=== PATIENT | male | born 2000 | race Two or more races ===

== ENCOUNTER 2022-07-08 12:32 | Outpatient (REF) | payer OTHER, SELFPAY ==
[2022-07-08 12:54] LABS: MANUAL DIFF FLAG NO
[2022-07-08 14:20] LABS: Basophils Percent Auto 0.3 % (0-2); Eosinophils Absolute Auto 0.1 X10*3/uL (0.0-0.4); Eosinophils Percent Auto 0.8 % (0-4); Hematocrit 43.9 % (42.0-52.0); Hemoglobin 15.2 g/dl (14.0-18.0); Imm Gran Abs Auto 0.01 X10*3/uL (0.00-0.03); Imm Gran Pct Auto 0.2 % (0.0-0.4); Lymphocytes Absolute Auto 2.6 X10*3/uL (1.2-4.9); Mean Corpuscular HGB Conc 34.6 g/dl (31.0-36.0); Mean Corpuscular Hemoglobin 28.4 pg (27.0-33.0); Mean Corpuscular Volume 81.9 fL (80.0-98.0); Mean Platelet Volume 11.7 fL (9.4-12.4); Monocytes Absolute Auto 0.3 X10*3/uL (0.1-1.2); Neutrophils Absolute Auto 3.4 x10*3/uL (2.0-8.3); Neutrophils Percent Auto 52.7 % (45-73); Platelet Count 213 X10*3/uL (160-400); Red Blood Count 5.36 X10*6/uL (4.60-5.80); Red Cell Distribution Width 13.1 % (11.0-16.0); White Blood Count 6.4 X10*3/uL (4.8-10.8)
[2022-07-08 14:51] LABS: Alanine Aminotransferase 11 U/L (0-40); Alkaline Phosphatase 105 U/L (39-117); Anion Gap 14 (12-20); Aspartate Amino Transferase 20 U/L (5-37); Bilirubin Total 3.5 mg/dL (0.0-1.0); Blood Urea Nitrogen 17 mg/dL (9-16); Calcium 10.1 mg/dL (8.4-10.2); Carbon Dioxide 24 mmol/L (22-29); Chloride 106 mmol/L (96-108); Estimated Glomerular Filt Rate > 60; Glucose Random 92 mg/dL (60-115); Potassium 4.4 mmol/L (3.3-5.1); Sodium 140 mmol/L (135-145); Total Protein 7.9 g/dL (6.5-8.0)
[2022-07-08 14:54] LABS: Vitamin D 25-OH Total 65.8 ng/mL (>30)
[2022-07-10 18:39] LABS: TS Negative Control Passed; TS Panel A 0; TS Panel B 0; TS Positive Control Passed; TSpotTB Negative (Negative)
== END 2022-07-08 12:33 | disposition home or self-care (01) ==
LOC: HO.LAB 12:32
PROVIDERS: Visit Provider Internal Medicine Gastroenterology
DX: E46 Unspecified protein-calorie malnutrition (principal); K75.81 Nonalcoholic steatohepatitis (NASH)
CPT/HCPCS: 36415; 80053; 82306; 85025; 86481

== ENCOUNTER 2024-09-17 08:56 | Outpatient (REF) | payer OTHER, SELFPAY ==
[2024-09-17 09:24] LABS: MANUAL DIFF FLAG NO
[2024-09-17 09:50] LABS: Basophils Percent Auto 0.4 % (0-2); Eosinophils Absolute Auto 0.1 X10*3/uL (0.0-0.4); Hematocrit 44.1 % (42.0-52.0); Hemoglobin 15.8 g/dl (14.0-18.0); Imm Gran Abs Auto 0.01 X10*3/uL (0.00-0.03); Imm Gran Pct Auto 0.2 % (0.0-0.4); Lymphocytes Absolute Auto 2.7 X10*3/uL (1.2-4.9); Lymphocytes Percent Auto 48.4 % (20-40); Mean Corpuscular HGB Conc 35.8 g/dl (31.0-36.0); Mean Corpuscular Hemoglobin 29.4 pg (27.0-33.0); Mean Platelet Volume 11.3 fL (9.4-12.4); Monocytes Absolute Auto 0.3 X10*3/uL (0.1-1.2); Neutrophils Absolute Auto 2.5 x10*3/uL (2.0-8.3); Platelet Count 179 X10*3/uL (160-400); Red Blood Count 5.38 X10*6/uL (4.60-5.80); Red Cell Distribution Width 13.1 % (11.0-16.0); White Blood Count 5.6 X10*3/uL (4.8-10.8)
[2024-09-17 10:07] LABS: Estimated Average Glucose 91 mg/dL; Hemoglobin A1C 117.3928 umol/L; Hemoglobin A1c % 4.8 % (<6.0); Total Hemoglobin (HGBA1C) 4007.2779 umol/L
[2024-09-17 10:53] LABS: Ferritin 66 ng/mL (20-250); TSH reflex Free T4 2.66 uIU/mL (0.32-4.0); Vitamin D 25-OH Total 49.4 ng/mL (>30)
[2024-09-17 10:54] LABS: Folate 7.2 ng/mL (> or = 4.0); Vitamin B12 771 pg/mL (200-900)
[2024-09-17 11:01] LABS: Alanine Aminotransferase 26 U/L (0-40); Anion Gap 14 (12-20); Aspartate Amino Transferase 32 U/L (5-37); Bilirubin Total 1.5 mg/dL (0.0-1.0); Blood Urea Nitrogen 12 mg/dL (9-16); Carbon Dioxide 25 mmol/L (22-29); Chloride 104 mmol/L (96-108); Cholesterol 221 mg/dL (<200); Estimated Glomerular Filt Rate > 60; Glucose Random 95 mg/dL (60-115); HDL Cholesterol 41 mg/dL (>40); LDL Cholesterol Calculated 147 mg/dL (<100); Magnesium 2.2 mg/dL (1.6-2.6); Potassium 3.7 mmol/L (3.3-5.1); Sodium 139 mmol/L (135-145); Total Protein 8.6 g/dL (6.5-8.0); Triglycerides 166 mg/dL (<150)
[2024-09-17 12:18] LABS: Reflex LDLD? No
[2024-09-17 19:44] LABS: Alkaline Phosphatase 101 U/L (39-117)
[2024-09-18 12:34] LABS: LDL Cholesterol Direct 152 mg/dL (<100)
[2024-09-20 23:42] LABS: Zinc 77 mcg/dL (60-130)
[2024-09-21 15:08] LABS: Apolipoprotein A1 118 mg/dL (>=115); Apolipoprotein B 120 mg/dL (<90)
[2024-09-21 22:05] LABS: Transglutaminase Ab IgG <1.0 U/mL
[2024-09-22 00:18] LABS: Vitamin A 58 mcg/dL (38-98)
[2024-09-22 04:59] LABS: Lipoprotein Asso Phospholip A2 129 (<124)
[2024-09-23 09:04] LABS: Lipoprotein A 12 nmol/L (<75)
[2024-09-23 16:02] LABS: Histamine Plasma >28.6 ng/mL (< OR = 1.8)
== END 2024-09-17 08:57 | disposition home or self-care (01) ==
LOC: HO.LAB 08:56
PROVIDERS: PCP Nurse Practitioner Family; Visit Provider Internal Medicine Gastroenterology
DX: E46 Unspecified protein-calorie malnutrition (principal); R10.33 Periumbilical pain; G89.29 Other chronic pain; Z13.1 Encounter for screening for diabetes mellitus
CPT/HCPCS: 36415; 80053; 80061; 82172; 82306; 82607; 82728; 82746; 83036; 83088; 83695; 83698; 83721; 83735; 84443; 84590; 84630; 85025; 86364

== ENCOUNTER 2024-09-17 09:50 | Outpatient (AMB) | payer OTHER, SELFPAY ==
--- NOTE | 2024-09-17 09:51 | MHC.OFFVIS ---
Intake Visit Reasons: abd s/s Allergies No Known Allergies Allergy (Verified 09/17/24 09:51) HPI HPI abd s/s: Details: HPI 24 yr old being seen for abnormal bowel habits He has been struggling with constipation for long time he gets bloating and discomfort appetite is good no blood in stool no mucous is stool not leonor tried any laxatives diet is healthy but could use more fiber he has history of orthodontia and required dental work ROS: Constitutional : No Weight loss, No Fever, No Chills ENT/Mouth : No sore throat, No Rhinorrhea Eyes: No Swelling, No Redness Cardiovascular : No Chest Pain, No SOB, No Edema Respiratory : No Cough, No Sputum, No Wheezing Gastrointestinal : see HPI Genitourinary : NO Dysuria, No Urinary Frequency, No Hematuria, No Urgency Musculoskeletal : no joint pain, No Myalgias, No Joint Swelling Skin : No Skin Lesions, No rash Neuro : No Weakness, No Numbness, No Dizziness, No Headache Psych : No Anxiety/Panic, No Depression Heme/Lymph: No Bruising, No Lymphadenopathy Endocrine : No Polyuria, No Polydipsia All other systems reviewed and are negative. Medical History none Surgical History dental work Family History no fh of IBD, colon cancer Social History non smoker, no alcohol or drug use A/P: 1/ Constipation, otherwise healthy, no red flags, labs were ordered with nml CBC. 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 This can be associated with dysphagia down the line and issues with constipation, poor feeding PLAN 1/ advised on increasing fluid intake, 4-5 glasses a day of water, with fiber 25 g or supplement 2/ can use miralax prn 3/ see if can get genetic testing for ectodermal dysplasia genes in case has future issues 4/ if worsening sx then colonoscopy Telehealth Telehealth Telehealth Platform: Telephone Location of provider rendering services: practice address Location of patient: address on file Patient Identification confirmed using: Name, : Yes Telehealth method: voice only Patient verbally consented to treatment: Yes Patient verbally consented to billing insurance company: Yes Patient informed of any privacy concerns related to visit: Yes Minutes spent on Phone/Video with Pt.: 8 Assessment & Plan Assessment & Plan (1) Constipation by delayed colonic transit: Code(s): K59.01 - Slow transit constipation Category: Medical Plan: as above (2) Hypodontia: Code(s): K00.0 - Anodontia Category: Medical Plan: as above Coding Level of Care Code Tele New Pt Level 4 (36091) Diagnoses Constipation by delayed colonic transit K59.01 Hypodontia K00.0
== END 2024-09-17 14:13 | disposition home or self-care (01) ==
LOC: HO.HGI 09:50
PROVIDERS: PCP Nurse Practitioner Family; Visit Provider Internal Medicine Gastroenterology
DX: K59.01 Slow transit constipation (principal); K00.0 Anodontia
CPT/HCPCS: 99204

== ENCOUNTER 2025-05-23 08:52 | Outpatient (REF) | payer OTHER, SELFPAY ==
[2025-05-23 09:09] LABS: MANUAL DIFF FLAG NO
[2025-05-23 09:45] LABS: Hematocrit 47.3 % (42.0-52.0); Hemoglobin 16.1 g/dl (14.0-18.0); Imm Gran Abs Auto 0.01 X10*3/uL (0.00-0.03); Imm Gran Pct Auto 0.2 % (0.0-0.4); Lymphocytes Absolute Auto 2.3 X10*3/uL (1.2-4.9); Mean Corpuscular HGB Conc 34.0 g/dl (31.0-36.0); Mean Corpuscular Hemoglobin 28.0 pg (27.0-33.0); Mean Corpuscular Volume 82.1 fL (80.0-98.0); NRBC Abs Auto 0.000 X10*3/uL (0.0-0.012); NRBC Pct Auto 0.0 /100WBC (0.0-0.2); Platelet Count 174 X10*3/uL (160-400); Red Blood Count 5.76 X10*6/uL (4.60-5.80); White Blood Count 5.1 X10*3/uL (4.8-10.8)
[2025-05-23 10:35] LABS: Alanine Aminotransferase 45 U/L (0-40); Albumin Level 4.9 g/dL (3.5-5.0); Alkaline Phosphatase 108 U/L (39-117); Anion Gap 13 (12-20); Aspartate Amino Transferase 33 U/L (5-37); Blood Urea Nitrogen 15 mg/dL (9-16); Calcium 9.7 mg/dL (8.4-10.2); Carbon Dioxide 26 mmol/L (22-29); Chloride 107 mmol/L (96-108); Cholesterol 212 mg/dL (<200); Estimated Glomerular Filt Rate > 60; HDL Cholesterol 34 mg/dL (>40); Potassium 3.8 mmol/L (3.3-5.1); Sodium 142 mmol/L (135-145); Total Protein 8.1 g/dL (6.5-8.0); Triglycerides 222 mg/dL (<150)
[2025-05-23 10:58] LABS: HBS Num1 70.12 mIU/mL (0-7.99); ~Hepatitis B Surface Antibody REACTIVE (Nonreactive)
[2025-05-23 12:14] LABS: Reflex LDLD? No
[2025-05-24 14:28] LABS: Rubeola IgG (Measles) 21.00 AU/mL
[2025-05-25 01:24] LABS: Hepatitis B Surface Ab Qnt 88 mIU/mL (> OR = 10)
== END 2025-05-23 08:53 | disposition home or self-care (01) ==
LOC: HO.LAB 08:52
PROVIDERS: Visit Provider Internal Medicine Gastroenterology
DX: Z01.84 Encounter for antibody response examination (principal); Z11.1 Encounter for screening for respiratory tuberculosis; Z13.220 Encounter for screening for lipoid disorders; Z13.89 Encounter for screening for other disorder; Z13.6 Encounter for screening for cardiovascular disorders
CPT/HCPCS: 36415; 80053; 80061; 82172; 83698; 83721; 85025; 86317; 86481; 86706; 86735; 86762; 86765; 86787